=== PATIENT | female | born 1980 | race African-American/Black ===

== ENCOUNTER 2017-07-15 10:46 | Emergency (ER) | payer MEDICARE, OTHER ==
[~2017-07-15] VITALS: Ht 175.3 cm; Wt 100.5 kg
[2017-07-15 10:51] VITALS: BP 140/98
--- NOTE | 2017-07-15 11:20 | NUR ---
PATIENT AMBULATED TO BED 3
--- NOTE | 2017-07-15 11:33 | NUR ---
37 YO FEMALE C/O HEADACHE 8/10 AND LIGHTHEADEDNESS X3D, DENIES N/V. PT STATES SHE TOOK CORICIDEN 1000MG PO TODAY @1030 FOR HEADACHE.
--- NOTE | 2017-07-15 12:08 | NUR ---
Dr. Mead evaluating patient at bedside.
[2017-07-15] MEDS ORDERED: KETOROLAC 60 MG/2 ML VIAL IM ONE (12:15)
[2017-07-15 12:38] VITALS: BP 141/68
== END 2017-07-15 12:39 | disposition home or self-care (01) ==
LOC: MED 10:46
DX: I10 Essential (primary) hypertension (principal); R51 Headache; R42 Dizziness and giddiness
CPT/HCPCS: 81002; 81025; 96372; 99283; J1885

== ENCOUNTER 2019-01-31 08:48 | Emergency (ER) | payer OTHER ==
[~2019-01-31] VITALS: Ht 172.7 cm; Wt 105.9 kg
--- NOTE | 2019-01-31 08:51 | NUR ---
PT AMBULATED TO ER BED 07
[2019-01-31 08:52] VITALS: BP 117/61
--- NOTE | 2019-01-31 08:58 | NUR ---
BIB SELF c/o LUMP LATERAL LT BREAST PAIN X 1 WK. DENIES NVD OR INJURY. AAOX4 WITH EVEN AND STEADY GAIT; LUNGS CLEAR BL; HR EVEN AND REGULAR; PT DENIES ANY FEVER, CP, SOB, OR COUGH AT THIS TIME; PATIENT STATES PAIN OF 7/10 AT THIS TIME. PATIENT POSITIONED FOR COMFORT; HOB ELEVATED; BEDRAILS UP X2; BED DOWN. ER MD MADE AWARE OF PT STATUS.
--- NOTE | 2019-01-31 09:16 | NUR ---
Patient being evaluated by DR MERCER at bedside.
[2019-01-31 12:08] VITALS: BP 117/61
--- NOTE | 2019-01-31 12:08 | NUR ---
Patient discharged with v/s stable. Written and verbal after care instructions given and explained. Patient verbalized understanding. Ambulatory with steady gait. All questions addressed prior to discharge. Advised to follow up for sonogram.
== END 2019-01-31 12:08 | disposition home or self-care (01) ==
LOC: MED 08:48
DX: N64.89 Other specified disorders of breast (principal)
CPT/HCPCS: 76641; 81002; 81025; 99284; Q0092

== ENCOUNTER 2021-03-27 16:57 | Emergency (ER) | payer SELFPAY ==
[~2021-03-27] VITALS: Ht 172.7 cm; Wt 111.1 kg
[2021-03-27 17:04] VITALS: BP 160/114
--- NOTE | 2021-03-27 17:10 | NUR ---
Patient ambulated with steady gait to bed 2.
--- NOTE | 2021-03-27 17:25 | NUR ---
40 Y/O FEMALE BIB SELF FOR C/O 10/10 L FLANK/LOWER BACK PAIN X7 DAYS THAT WORSENED TODAY. DENIES DYSURIA/HEMATURIA/FEVER. PT TAKING AZO WITH NO RELIEF AND STATES SHE ALSO TOOK 2 PILLS OF AMOXICILLIN. PT DESCRIBES PAIN STABBING/STINGING THAT RADIATES TO RIGHT LOWER BACK. PT DENIES N/V. DENIES INJURY/TRAUMA. LMP 02/23. PT A/O X4 WITH EVEN AND UNLABORED RESPIRATIONS. PT IN GOWN SITTING UP IN BED WITH BED IN LOWEST POSITION, BRAKES LOCKED, X1 SIDERAIL UP. MED HX: DENIES NKA
[2021-03-27 17:41] LABS: APPEARANCE,URINE CLEAR (CLEAR); BILIRUBIN,URINE NEGATIVE (NEGATIVE); BLOOD, URINE NEGATIVE (NEGATIVE); COLOR,URINE YELLOW (YELLOW); LEUKOCYTE ESTERASE ,URINE NEGATIVE (NEGATIVE); NITRITE, URINE NEGATIVE (NEGATIVE); UGLUCOSE NEGATIVE (NEGATIVE)
[2021-03-27] MEDS ORDERED: ACETAMINOPHEN EXTRA STRENGTH 500 MG TAB PO ONE (18:10)
[2021-03-27] MEDS ORDERED: IBUPROFEN 800 MG TAB PO ONE (18:10)
--- NOTE | 2021-03-27 19:08 | NUR ---
REPORT RECIEVED FROM ELSY GOMEZ FOR CHANGE OF SHIFT.
--- NOTE | 2021-03-27 19:08 | NUR ---
GAVE REPORT TO CARMEN CHIN. TRANSFER OF CARE AT THIS TIME.
[2021-03-27] MEDS ORDERED: IBUP-2213 PO (19:14)
[2021-03-27] MEDS ORDERED: ACET-10509 PO (19:14)
[2021-03-27] MEDS ORDERED: CYCL10TA33 PO (19:14)
[2021-03-27] MEDS ORDERED: LID5T TP (19:14)
--- NOTE | 2021-03-27 19:15 | NUR ---
PATIENT SITTING AT BEDSIDE, COMFORTABLY. PATIENT DENIES PAIN, NAUSEA, VOMITING. NO NOTED RESPIRATORY DISTRESS. VSS. ALL NEEDS MET AT THIS TIME.
[2021-03-27 19:30] VITALS: BP 123/84
--- NOTE | 2021-03-27 19:30 | NUR ---
Patient discharged with v/s stable. Written and verbal after care instructions given and explained. Patient alert, oriented and verbalized understanding of instructions. Ambulatory with steady gait. All questions addressed prior to discharge. ID band removed. Patient advised to follow up with PMD. Rx of TYLENOL EXTRA STRENGTH, CYCLOBENZAPRINE, IBUPROFEN, LIDODERM 5% PATCH given. Patient educated on indication of medication including possible reaction and side effects. Opportunity to ask questions provided and answered.
== END 2021-03-27 19:30 | disposition home or self-care (01) ==
LOC: MED 16:57
DX: S39.012A Strain of muscle, fascia and tendon of lower back, initial encounter (principal); Z79.1 Long term (current) use of non-steroidal anti-inflammatories (NSAID); Z79.899 Other long term (current) drug therapy; X58.XXXA Exposure to other specified factors, initial encounter; Y92.89 Other specified places as the place of occurrence of the external cause; Y93.89 Activity, other specified; Y99.8 Other external cause status
CPT/HCPCS: 81003; 81025; 87086; 99283